=== PATIENT | female | born 1950 | race Caucasian/White ===

== ENCOUNTER 2017-03-22 05:30 | Day surgery (SDC) | payer MEDICARE ==
[2017-03-22] VITALS (13 sets, daily range): BP systolic 115–144; BP diastolic 44–81; PULSE 79–94; RESP 13–21; O2SAT 91–99
[~2017-03-22] VITALS: Ht 152.4 cm; Wt 91.5 kg
[2017-03-22] MEDS: Lactated Ringer's 1,000 ML IV SCH ×2 (05:00→11:13)
[~2017-03-22 05:30] MED LIST: ASPI-973 PO; Dextrose 10% 500 ML IV SCH; GLIM2TAB2 PO; HYDR25TA4 PO; LOSA100T29 PO; MECL-114 PO; METF850T2 PO; SIMV40TA5 PO
[2017-03-22] MEDS ORDERED: fentaNYL-PF 50 mCg/mL 2 mL Inj ONE (05:31)
[2017-03-22] MEDS ORDERED: Succinylcholine Chloride 20 mg/mL 5 mL Inj ONE (05:31)
[2017-03-22] MEDS ORDERED: Ondansetron 2 mg/mL 2 mL Inj ONE (05:31)
[2017-03-22] MEDS ORDERED: Propofol 10,000 mCg/mL 20 mL Inj ONE (05:31)
[2017-03-22] MEDS ORDERED: Glycopyrrolate 0.2 MG/ML 1mL Inj ONE (05:31)
[2017-03-22] MEDS ORDERED: Neostigmine 1 mg/mL 10 mL Inj ONE (05:31)
[2017-03-22] MEDS ORDERED: CeFAZolin Inj 2,000 MG in Dextrose 5%-Pha MIX 50 ML IV SCH (06:00)
[2017-03-22] MEDS: Phenazopyridine 97.5 mg Tablet PO SCH ×2 (06:00→07:05)
[2017-03-22] MEDS ORDERED: Lactated Ringer's 1,000 ML IV ONE ×3 (06:08→09:02)
--- NOTE | 2017-03-22 07:05 | PCM.HPANE ---
Patient Data Surgeon Admitting Provider: Attending Provider:Iván Hollis MD Primary Care Physician:Manpreet Other Provider:Keyshawn Snider Anesthesia Reason for Visit Stress Incontinence Ht/WT & BMI Height (Feet): 5 Height (Inches): 0.00 Weight (Kilograms): 86.4 Body Mass Index 37.00 Allergies Coded Allergies: No Known Allergies (Unverified , 03/21/17) Past Anesthesia History Anesthesia History: Denies:: Anesthesia Reactions, Fam Anesthesia Reaction, Fam Malignant Hypertherm, Malignant Hyperthermia Diabetes History Hx Diabetes?: Yes (TYPE II) Type of Diabetes: Type II Glycemic Control: Oral Medication Current Bedside Blood Glucose: 147 MRSA MRSA: No Medications Blood Thinner: Aspirin Hypertension Medication: Yes Home Meds Incl Beta [place]: No Reported Medications Simvastatin 40 Mg [id number] Mg PO HS 30 Days Ref 0 03/21/17 Hydrochlorothiazide 25 Mg [id number] Mg PO DAILY 30 Days Ref 0 03/21/17 Glimepiride 2 Mg Tablet2 Mg PO DAILYAC #30 TABLET Ref 0 03/21/17 Losartan Potassium 100 Mg [id number] Mg PO DAILY 03/21/17 Metformin 850 Mg [id number] Mg PO TID Ref 0 03/21/17 Aspirin 81 Mg [id number] Mg PO DAILY Ref 0 03/21/17 Discontinued Reported Medications Meclizine (Bonine)25 Mg Tab.chew25 Mg PO TID PRN For Dizziness 03/21/17 History History of ENT Problems?: Yes HEENT History: Positive for:: Sinus Problem (SEASONAL ALLERGIES) Denies:: Abnormal Airway Cataracts Difficult Intubation Dysphagia Glaucoma Hearing Problem TMJ Denture Type: None Teeth Condition: Within Normal Limits Other HEENT Pertinent History: Hx of Heart Problems?: Yes Cardiovascular History: Positive for:: Edema Heart Murmur (AORTIC INSUFFICENY) Hypertension Peripheral Vascular Denies:: AICD Abdominal Aortic Aneurism Atrial Fibrillation Cardiac Surgery Chest Pain Congestive Heart Failure Coronary Artery Disease Irregular Heartbeat Pacemaker Rheumatic Fever Thrombophlebitis Valvular Heart Disease Other Cardiac History: SUBCLAVIAN ARTERY STENOSIS 50% HYPERCHOLSTEROLEMIA Hx of Respiratory Problem?: Yes Respiratory History: Positive for:: Use of C-PAP Machine Denies:: Asthma COPD Chest Surgery Cough Dyspnea Emphysema Hemoptysis Oxygen Administration Pneumonia Pulmonary Embolism Tuberculosis Use of Inhalers / NEBS Hx Neurologic Problems?: Yes Neurological History: Positive for:: Dizziness Denies:: Alzheimer's Disease CVA Dementia Headaches Multiple Sclerosis Parkinson's Disease Peripheral Neuropathy Seizures TIA Hx of GI Problems?: No Gastrointestinal History: Denies:: Cirrhosis Diverticulitis Gall Bladder Disease Gastroesphageal Reflux Gastrointestinal Bleeding Heartburn Hepatitis Hiatal Hernia Liver Disease Rectal Bleeding Hx of Problems?: Yes Genitourinary History: Positive for:: Urinary Tract Infection Denies:: HX of Hemodialysis Kidney Stones Female Hx: Denies:: Currently Endometriosis Pelvic Inflammatory Problems with Breasts? Other History/Comment prolapse Skin History: Denies:: History Skin Disorders? Pressure Ulcers Hx Musculoskeletal Problems?: No Musculoskeletal History: Denies:: Back Injury Degenerative Joint Fibromyalgia Joint Replacement Musculoskeletal Trauma Myasthenia Gravis Osteoarthritis Rheumatoid Arthritis Systemic Lupus Hx of Psycho/Social Problems?: No Psycho Social History: Denies:: Anxiety Bipolar Disorder Hx Depression Suicide Attempt Hx Surgeries?: Yes (3 C-SECTIONS, JASON, 2 FOOT SURGERIES) Hx Any Other Health Problems?: No Other History: Denies:: Cancer Endocrine Disease Hospitalization Thyroid Disease History Blood Transfusions: Positive for:: Accept Blood Products? Denies:: Blood Transfusions Hx Diabetes: Yes (TYPE II)Bedside Blood Glucose: 147 Hx Alcohol Use: NoHx Substance Use: No Smoking Status: Never Smoker Have You Smoked inLast 12 mo: No Stop/Bang Treated for Sleep Apnea?: Yes Do You Have a CPAP Machine?: Yes S-Snoring: Do You Snore Loudly: Yes T-Tired: feel tired, fatigued: Yes O-Obsered: Observed not breath: Yes P-Blood Pressure: treated: Yes B- Body Mass Index > 35 kg/m2: Yes A- Age over 50: Yes N- Neck Large Circumference: Yes G- Gender Male: No MIAH Total Score: 7 MIAH Risk Assessment: High Risk, =/>3 Yes MIAH Category 2: Yes Risk Assessment Category Category 1A: Patient has history of documented sleep apnea, and HAS NOT received any narcotic, sedative or anesthesia administration during this stay. Category 1B: Patient has history of documented sleep apnea, and HAS received any narcotic , sedative or anesthesia administration during this stay Category 2: Patient has SUSPECTED Obstructive Sleep Apnea, and HAS received any narcotic , sedative or anesthesia administration during this stay. Category 3: Patient has SUSPECTED Obstructive Sleep Apnea and HAS NOT received narcotic, sedative or anesthesia administration during this stay. Category 4: Outpatient in Procedural Areas with known sleep apnea or who screen positive for High Risk via the STOP/BANG questionnaire. Exam Exam Vital Signs Vital Signs Date Time Temp Pulse Resp B/P Pulse Ox O2 Delivery O2 Flow Rate FiO2 03/22/17 06:09 36.4 82 20 127/81 96 Room Air General Appearance: Alert, Oriented X3, Cooperative, No Acute Distress HEENT/AIRWAY: MP 3 Lungs: Clear to Auscultation, Normal Air Movement Heart: Exam Unremarkable, Regular Rate/Rhythm, No Murmurs/Rubs/Gallops Meds/Labs/Diagnostics Admission Meds Current Medications Lactated Ringer's (Lr) 1,000 ml @ ud STK-MED ONCE IV Last administered on 03/22t 06:08; Start 03/22/17 at 06:08; Stop 03/22/17 at 06:09; Status DC Bedside Blood Glucose: 147 Plan Impression Patient chart reviewed, patient interviewed and anesthestic plan with risks, benefits, and alternatives discussed, and informed consent obtained. NPO per Anesth. Guidelines: Yes ASA Physical Status: ASA3 Severe Disease Anesthetic Support Modalities: [place] Scope Anesthetic Plan: GA Bene/Risks/Altern/Consents: Yes HP Complete Prior to Induction: Yes Boo Martinez MD March 22, 2017 07:05
[2017-03-22] MEDS ORDERED: Lidocaine 1%-Epi 1:100,000 20 mL Inj INJ ONE (07:45)
[2017-03-22] MEDS ORDERED: Estrogens Conjugated 30 Gm Vaginal Cream VAGINAL ONE (08:40)
[2017-03-22] MEDS ORDERED: Gentamicin 40 mg/mL 2 mL Inj IRRIGATION ONE ×2 (08:59→12:08)
[2017-03-22] MEDS ORDERED: Lactated Ringer's 500 ML IV PRN (09:42)
[2017-03-22] MEDS ORDERED: Lactated Ringer's 1,000 ML IV SCH (09:42)
[2017-03-22] MEDS ORDERED: Ondansetron 2 mg/mL 2 mL Inj IVPUSH PRN (09:45)
[2017-03-22] MEDS ORDERED: EPHEDrine Sulfate 50 mg/mL Inj IVPUSH PRN (09:45)
[2017-03-22] MEDS ORDERED: Phenylephrine 10,000 mCg/mL Inj IVPUSH PRN (09:45)
[2017-03-22] MEDS ORDERED: fentaNYL-PF 50 mCg/mL 2 mL Inj IVPUSH PRN (09:45)
[2017-03-22] MEDS ORDERED: MetoCLOpramide 5 mg/mL 2 mL Inj IVPUSH PRN ×2 (09:45→13:15)
[2017-03-22] MEDS ORDERED: Dexamethasone 4 mg/mL Inj IVPUSH PRN (09:45)
[2017-03-22] MEDS ORDERED: HYDROmorphone 1 mg/mL Inj IVPUSH PRN (09:45)
[2017-03-22] MEDS ORDERED: Acetaminophen IV 1,000 MG in IV Premix 1 EACH IV ONE (10:25)
[2017-03-22] MEDS ORDERED: diphenhydrAMINE 25 mg Capsule PO PRN (13:15)
[2017-03-22] MEDS ORDERED: Alum-Mag Hydrox-Simeth 30 mL Suspension PO PRN (13:15)
[2017-03-22] MEDS ORDERED: HYDROmorphone 0.5 mg/0.5 mL iSecure Syringe ONE (13:23)
--- NOTE | 2017-03-22 14:44 | PCM.ANEP1 ---
Post Anesthesia PACU Phase 1 Assessment Date of Service: March 22, 2017 Vital Signs Vital Signs Date Time Temp Pulse Resp B/P Pulse Ox O2 Delivery O2 Flow Rate FiO2 03/22/17 14:28 Supplement Oxygen 03/22/17 14:26 36.8 88 20 134/73 91 Nasal Cannula 03/22/17 13:55 84 17 135/58 95 Nasal Cannula 3 03/22/17 13:45 83 16 123/81 95 Nasal Cannula 3 03/22/17 13:30 79 13 115/64 95 Nasal Cannula 3 03/22/17 13:20 36.5 85 19 129/44 94 Nasal Cannula 2 03/22/17 13:15 87 19 126/61 93 Nasal Cannula 2 03/22/17 13:10 89 21 134/61 95 Nasal Cannula 2 03/22/17 13:05 91 17 144/69 98 Simple Mask 8 03/22/17 13:00 92 16 140/60 99 Simple Mask 8 03/22/17 12:56 36.5 94 18 140/62 98 Simple Mask 8 Anesthetic Administered: GA Level of Alertness: Drowsy, not talking FLORES's with Equal Strength: Yes Pain: No Nausea or Vomiting: No CV Function & Hydration Stable: Yes Airway Device: Endotrachial Tube Oxygen Delivery: Simple Mask Lungs: Clear to Auscultation, Normal Air Movement Dermatome Level: Full Sensation PACU Phase 2 Assessment Complications: No Follow up Care: No Patient Instructions Provided: Yes Boo Martinez MD March 22, 2017 14:44
--- NOTE | 2017-03-22 14:51 | NUR ---
Arrival to unit Patient arrived to the the unit at 1407 very drowsy, wakes briefly to voice and touch but quickly drifts back to sleep. She is on 2L nasal cannula, archer catheter patent and draining to gravity, vaginal packing. Family at bedside.
[2017-03-22] MEDS: oxyCODONE-Acetamin 5-325 mg Tablet PO PRN ×2 (16:19→20:10)
[2017-03-22] MEDS: 0.9% Sodium Chloride 1,000 ML IV SCH ×2 (16:20→23:04)
[2017-03-22] MEDS: Insulin Human REGular 300 Unit/3 mL Inj SUBQ SCH ×2 (16:24→20:10)
[2017-03-22] MEDS: Acetaminophen IV 1,000 MG in IV Premix 1 EACH IV SCH (18:07)
[2017-03-23 00:11] VITALS: BP 143/72; PULSE 79; RESP 20; O2SAT 94
[2017-03-23] MEDS: Acetaminophen IV 1,000 MG in IV Premix 1 EACH IV SCH (00:30)
--- NOTE | 2017-03-23 01:07 | PCM.SURGOP ---
Surgical Operative Report Date of Service: March 22, 2017 Pre Operative Diagnosis 1. cystocele POPQ stage 2 2. uterine prolapse POPQ stage 2 3. rectocele POPQ stage 2 4. urodynamic stress incontinence, intrinsic sphincter deficiency Post Operative Diagnosis same deficient pubovesical/pubocervical fascia Procedure: 1. vaginal hysterectomy with bilateral adnexectomy 2. anterior repair with Xenform bioligical graft augmentation 3. posterior repair 4. high uterosacral ligament vaginal vault suspension. 5. TVT retropubic sling and cystoscopy Surgeon and Manager Mobility: Surgeon: Iván Hollis MD Assistants: Jessica Roe MD Indication for Procedure Her assessment to date includes: 1. Stress incontinence in female N39.3 (625.6): Urodynamic testing revealed intrinsic sphincter deficiency 2. Uterovaginal prolapse, incomplete N81.2 (618.2): 3. Cystocele, midline N81.11 (618.01): 4. Rectocele N81.6 (618.04): The patient is a candidate for surgical prolapse management in the form of vaginal hysterectomy with possible BSO, anterior repair and posterior repair with possible biologic graft augmentation, high uterosacral ligament vaginal vault suspension. enterocele repair and TVT retropubic sling. She has obtained medical /cardiac clearance for surgery. The patient signed the consent form. She agreed with the risks, benefits, and alternatives to surgery. The risks included but not limited to recurrence or persistence of prolapse, recurrence of persistence of incontinence, development of voiding dysfunction, development of urinary urgency, urgency incontinence, frequency, and need for intermittent self-catheterization or prolonged indwelling catheterization, injury to other organs including bladder, bowel, nerves or blood vessels. Need for blood transfusion, need for temporary colostomy or urinary stenting. Development of vaginal scarring, dyspareunia, defecatory dysfunction, recurring pain, hematoma formation, urinary tract infection, cellulitis, necrotizing fascitis, and medical risks including myocardial infarction, stroke or VTE. She also understood the FDA warnings associated with the use of vaginal mesh (dysparunia, vaginal erosion, erosion into bowel/bladder/urethra, requiring further surgery to correct these complications). The patient understood the risks and benefits and consented to surgery. Findings: see dictation Procedure Details SURGICAL TECHNIQUE: The patient was brought to the operating room. She was placed under general anesthesia. She was positioned with legs in [place] stirrups. She was prepped and draped in the normal fashion for vaginal surgery. She was given a dose of IV ancef intraoperatively. She received 200 mg pyridium orally 30 min prior to surgery. 1. Vaginal Hysterectomy and bilateral salpingectomy: Lidocaine 0.5% with 1:200,000 of epinephrine was infiltrated pericervically. A pericervical incision was made with cautery. Anteriorly, the bladder was sharply dissected off the cervix. Posteriorly, the cul de sac was entered with sharp dissection. The bowels were packed with a mini-laparotomy sponge. The uterosacral ligaments were bilaterally clamped, divided and then tied in a transfixion fashion with 0- vicryl suture. Anteriorly, the Uterovesical peritoneum was entered with sharp dissection and the bladder was retracted upward with a right-angle retractor. Entry was aided via direct palpation of the scarred uterovesical peritoneum though the posterior colpotomy incision and around the uterine fundus. The uterine vessels were then coagulated, and ligated using the Ligasure Impact System. The uterine body was delivered posteriorly. The utero-ovarian ligaments were clamped bilaterally, coagulated, ligated and then tied using 0-Vicryl suture. The tubes and ovaries appeared atrophic, especially along the left side. The right tube and ovary was clamped at its vascular base, coagulated with Ligasure and excised. The pedicle was tied with 0-vicryl suture. The left tube and ovary appeared even more so atrophic; we excised what we thought were the atrophic left adnexa or its remnants. The uterus/cervix, and tubes were sent to pathology. It was noted that the pedicles were hemostatic. 0 vicryl suture was used to achieve hemostasis along the cuff. 2. High uterosacral ligament vaginal vault suspension and cystoscopy: Mini laparotomy sponges were packed to retract the bowel upwards. A pair of Allis clamps were placed along the intraperitoneal portions of the vagina at the 5 and 7 o'clock positions. Tension along these Allis clamps allowed for identification of the uterosacral ligaments bilaterally. A pair of 0 Vicryl sutures were passed around the uterosacral ligaments of the level of the ischial spine bilaterally, totalling 4. Cystoscopy was performed. Tension was applied along the vault sutures and brisk spillage of pyridium-stained urine was noted briskly effluxing from both ureteric orifices. There was no significant enterocele; therefore an enterocele repair was not necessary. 3. Anterior colporrhaphy with Xenform graft augmentation: Lidocaine 1% with 1/ 065524 epinephrine was infiltrated along the anterior vaginal wall mucosa. A midline vertical incision was made through the anterior vaginal wall. The vaginal wall was dissected off the underlying pubocervical and pubovesical fascia. The dissection was extended laterally beyond the ischial pubic rami. It was noted that the pubocervical and pubovesical fascial tissues were deficient and thin. The cystocele was plicated in 2 layers, the first layer with 2-0 Vicryl suture in interrupted fashion, the second layer with 2-0 Tycron suture in an interrupted fashion. A trapezoidal piece of Xenform graft was then incorporated atop the plicated area far laterally. The graft was secured to the obturator internus membrane. At the level of the bladder neck, an upside down triangular piece of graft was excised so that there was no over-support created along the level of the bladder neck. Apically , the graft was passed through the proximal uterosacral ligament sutures. No anterior vaginal mucosa was required to be excised. The vault suspension sutures were then passed through the planned apex of the vagina. Two were placed through the anterior apex and the other two, through the posterior apex. The vagina was then reapproximated using 3-0 Vicryl suture in a running-locked fashion. The high uterosacral ligament vaginal vault suspension sutures were tied and this elevated the apex of the vagina high up into the hollow of the sacrum. 4. Posterior colporrhaphy: As the patient had 3 C-sections, the introitus was tight. Therefore, a perineorrhapy was deemed unnecessary. Lidocaine 1% with 1:200,000 of epinephrine was infiltrated along the posterior vaginal wall mucosa. A midline vertical incision was made through the posterior vaginal wall. The vaginal mucosa was dissected off the underlying rectovaginal tissues. It was noted the fascial tissues were sufficient. The rectocele was plicated in one layer using 2- 0 Vicryl suture in an interrupted fashion. No excess posterior vaginal mucosa was excised. The vagina was reapproximated using 2-0 Vicryl suture in running-locked fashion. 5. Tension-free vaginal tape retropubic sling and cystoscopy: Lidocaine 1% with epinephrine 1/304599 was infiltrated along the anterior vaginal wall mucosa at the level of the mid urethra. A midline vertical incision was made at the level of the scalpel. Metzenbaums were used to create 2 periurethral tunnels. Two stab incisions were created along the suprapubic regions. Catheter guidewire was inserted into the Archer catheter. Using the TVT needle attached to its handle, the needle was inserted into the right periurethral tunnel. The point was initially directed towards the ipsilateral shoulder. Once it pierced the urogenital diaphragm it was then directed medially. During passage of the needle we insured that the needle was hugging snugly against the pubic bone until the needle was brought through through the ipsilateral skin incision. Archer catheter was removed. Cystoscopy assured that there was no inadvertent penetration of the needle through the dome of the bladder or periurethrally. Procedure was performed on the contralateral side. Again, cystoscopic evaluation revealed that there was no penetration of the sling into the urethra or bladder on the contralateral side. Both ureteric orifices were noted to be functional by the brisk spillage of pyridium-stained urine. The bladder was filled with 300 cc of sterile water. Plastic sheaths and the sling were removed. The Crede maneuver was used to carefully adjust sling tension. Also a large right angle clamp was allowed to easily pass behind the sling so that the sling was placed in a tension-free manner. Sling ends were cut level to the skin. The skin is reapproximated using Mastisol solution, Steri-Strips and Band-Aids. The vagina was reapproximated using 3-0 Vicryl suture in a running fashion. The vagina was packed with Premarin-lubricated packing. An indwelling 16 F archer catheter was connected to straight drainage. The patient's hips were periodically deflexed during the case. There were no complications. The EBL was 250 ml. All sponges and instruments were accounted for. She was taken to the recovery room in stable condition. Complications There were no periprocedural complications identified. Surgical Specimen Removed: Yes Specimen sent to Pathology: Yes Surgical Specimen description: bilateral adnexa Anesthetic Plan: GA Grafts, Implants: Grafts-See Implant Record, Implants-See Implant Record Output, Estimated Blood Loss: 250 (ml) Blood Administration during cao: No Drains: None Catheters: Urethral 2 Way Archer Post Operative Plan overnight stay in bed as outpatient as she requires a voiding trial in the am copies to: Jessica Roe MD; Iván Hollis MD; carlos alberto melchor MD, William Andre Z MD Mar 23, 2017 01:07
[2017-03-23] MEDS: oxyCODONE-Acetamin 5-325 mg Tablet PO PRN ×2 (01:09→05:02)
--- NOTE | 2017-03-23 02:10 | NUR ---
Mentation/Pain/Respiratory Patient noted to be resting with eyes closed every time staff member walks into room. Easily awakes to voice and answering questions appropriately. When awake, pt rating abd/pelvic pain 6-7/10. Receiving Percocet one tab PO for pain management with effective results. Upon each reassessment, noted to be resting with eyes closed. RT in room @ to help set up patients home CPAP machine. CPOx in place- mid s.
[2017-03-23] MEDS: Insulin Human REGular 300 Unit/3 mL Inj SUBQ SCH ×4 (02:22→20:30)
[2017-03-23 05:08] VITALS: BP 153/72; PULSE 75; RESP 20; O2SAT 96
[2017-03-23 05:43] LABS: BASOPHILS % (AUTO) 0.1 % (0-3); EOSINOPHILS % (AUTO) 0.2 % (0-5); MONOCYTES % (AUTO) 10.8 % (4-12); Mean Corpuscular Hemoglobin 26.4 pg (27.0-35.0); Mean Corpuscular Volume 85.1 fL (81-100); NEUTROPHILS % (AUTO) 67.1 % (40-74); Platelet Count 355 bil/L (150-400)
[2017-03-23] MEDS: 0.9% Sodium Chloride 1,000 ML IV SCH ×3 (06:09→21:12)
[2017-03-23] MEDS ORDERED: Heparin 5,000 Unit/mL Inj SUBQ SCH (08:30)
--- NOTE | 2017-03-23 11:00 | PCM.DIGYN ---
Surgical Discharge Instruction Dates of Hospitalization Date of Hospital Admission 03/22/17 overnight stay as outpatient Providers Admitting Physician: Primary Care Physician: Nopcp Attending Physician: Iván Hollis MD Diagnosis at Time of Discharge Diagnosis at time of discharge uterovaginal prolapse, stress incontinence Post-operative diagnosis same deficient pubovesical/pubocervical fascia Problems: Diet Discharge Diet: No restrictions Activity Discharge Activity-General: Restrict lifting to no greater than (10 lb for 6 wk ) Dressing and Incisional Care Dressing Care: Allow Steri Stripes to fall off Hygiene: May shower Follow Up Plan Follow-up appointment: Weeks (1 for a nurse visit for a voiding trial IF she goes home with a archer cath; see DR. Hollis in 2 wk also) Call your provider for: Fever, Chills, Shortness of breath, Vomitting, Heavy vaginal bleeding, Increasing pain Iván Hollis MD Mar 23, 2017 11:00
--- NOTE | 2017-03-23 11:07 | NUR ---
Void Trial Removed Archer @ 1100. Only able to place 150ml into bladder before pt stated that she felt that it was full. Removed archer and pt on commade unable to void at this time. Will continue to monitor. Addendum: 03/23/17 at 1949 by SAMI WHITE RN Pt unable to void. Archer 16G was replaced after a few attempts. Archer capped and educated pt regarding emptying bladder/cath every 4 hrs at least or when bladder feels full. Care continues
[2017-03-23] MEDS: Ondansetron 2 mg/mL 2 mL Inj IVPUSH PRN ×2 (11:08→16:22)
[2017-03-23] MEDS: Senna-Docusate 8.6-50 mg Tablet PO SCH ×2 (13:11→21:03)
[2017-03-23 13:47] VITALS: BP 145/71; PULSE 83; RESP 20; O2SAT 94
--- NOTE | 2017-03-23 19:49 | NUR ---
Pain / N/V Pain remains uncontrolled. Pt frequently moaning and c/o pain 06/01. Anytime she attempts to move ot get up or out of bed she becomes nauseous and will vomit. Denies light headed or dizziness but states "I'm so sick." Nausea seems to follow narcotic use. Ibuprofen and Tylenol will be used as well as Zofran for nausea. Oscar did not seen to help. Care continues Addendum: 03/23/17 at 1951 by SAMI WHITE RN MD Hollis paged throughout the day and aware of situation. Per MD Hollis OK for pt to stay another night. Care continues
[2017-03-23 20:55] VITALS: BP 114/69; PULSE 81; RESP 18; O2SAT 93
[2017-03-23] MEDS: Heparin 5,000 Unit/mL Inj SUBQ SCH (21:05)
--- NOTE | 2017-03-23 22:28 | PCM.PNSURG ---
Subjective Date of Service: Mar 23, 2017 Date of Service: Mar 23, 2017 Visit Information: Reason for Visit Stress Incontinence Surgery/Surgery Date VAG HYST 03/22/17 Post-Op Day # 1 Subjective: Patient first seen by Dr. Hollis at 11am and followed via phone calls to the evening of 03/23/17 AVSS Pain control has been an issue through. Morphine and Percocet have been nauseating for her. Limited pain control with addition of tramadol. Currently , pain is being treated with Ibuprofen and Tylenol which is not nausea-causing. She is slow to ambulate as a result, and she is eating minimally Hct stable OR explained to patient Voiding trial: patient failed Objective Vital Sign- Last 8 Hours Date Time Temp Pulse Resp B/P Pulse Ox O2 Delivery O2 Flow Rate FiO2 03/23/17 20:55 36.8 81 18 114/69 93 Room Air Intake and Output- Last 8 Hour 03/23/17 Cumulative From/Thru 07:00 03/21/17 13:59 - 03/23/17 06:03 Intake Total 2062 ml 4812 ml Output Total 775 ml 1175 ml Balance 1287 ml 3637 ml Intake Oral 200 ml 200 ml IV Total 1862 ml 4612 ml Output Urine Total 525 ml 675 ml Estimated Blood Loss 250 ml 500 ml # Bowel Movements 0 0 General: Alert, Oriented X3 Lungs: Clear to Auscultation Abdomen: Soft Catheters: Urethral 2 Way Archer Result Diagram: 03/23/17 0450 Assessment & Plan Impression 1. Pain-control is sub-optimal due to her intolerance to narcotics 2. Nausea control has been difficult due to need to try narcotics for pain relief 3. Failed voiding trial Problems: Plan 1. Will keep patient in hospital for an extra day to optimize pain-control and nausea-control 2. she has failed the voiding trial and she will need archer teaching 3. Increase Ibuprofen to 600 mg QID; use extra strength tylenol concurrently 4. encourage ambulation and nutrition VTE Prophylaxis: Sub-Q Heparin (Unfractionated) Resuscitation Status: CPR: Attempt Resuscitation copies to: Iván Hollis MD, William Andre Z MD Mar 23, 2017 22:28
[2017-03-24] MEDS: Insulin Human REGular 300 Unit/3 mL Inj SUBQ SCH ×2 (02:30→08:13)
--- NOTE | 2017-03-24 03:54 | NUR ---
Pain Pt. has rated pain 2/10 during shift until now. Pt. reports Tylenol and Ibuprofen PO effective for pain. Will continue to monitor.
[2017-03-24] MEDS: 0.9% Sodium Chloride 1,000 ML IV SCH ×2 (05:12→13:12)
[2017-03-24 05:51] VITALS: BP 147/78; PULSE 79; RESP 20; O2SAT 94
[2017-03-24] MEDS: Heparin 5,000 Unit/mL Inj SUBQ SCH ×2 (06:05→12:30)
[2017-03-24] MEDS: Senna-Docusate 8.6-50 mg Tablet PO SCH (08:11)
--- NOTE | 2017-03-24 10:02 | PCM.PNSURG ---
Subjective Date of Service: Mar 24, 2017 Date of Service: Mar 24, 2017 Visit Information: Reason for Visit Stress Incontinence Surgery/Surgery Date VAG HYST 03/22/17 Post-Op Day # 2 Subjective: AVSS Nausea now resolved - pt reports feeling much better today Only taking tylenol and Ibuprofen; narcotics held to prevent nausea ambulatory starting to eat more Cr 0.6 failed void trial yesterday Gastrointestinal: Tolerating Oral Feedings Pain Management: PO Postop Activity: Ambulate with Assist Objective Vital Sign- Last 8 Hours Date Time Temp Pulse Resp B/P Pulse Ox O2 Delivery O2 Flow Rate FiO2 03/24/17 08:14 CPAP/BIPAP 03/24/17 05:51 36.8 79 20 147/78 94 Room Air Intake and Output- Last 8 Hour 03/24/17 Cumulative From/Thru 07:00 03/21/17 13:59 - 03/24/17 06:50 Intake Total 600 ml 5762 ml Output Total 650 ml 2925 ml Balance -50 ml 2837 ml Intake Oral 600 ml 1150 ml IV Total 4612 ml Output Urine Total 650 ml 2425 ml Estimated Blood Loss 500 ml # Bowel Movements 0 General: Alert, Oriented X3, Cooperative Lungs: Clear to Auscultation Abdomen: Soft Catheters: Urethral [address] Mejia Result Diagram: 03/23/17 0450 03/23/17 0450 Assessment & Plan Impression Stable POD#2 ready for discharge today Problems: Plan D/C home later today when ready and stable f/u in [address] Hollis's MA, and [address] Hollis VTE Prophylaxis: Sub-Q Heparin (Unfractionated) Resuscitation Status: CPR: Attempt Resuscitation copies to: Iván Hollis MD, William Andre Z MD Mar 24, 2017 10:02
--- NOTE | 2017-03-24 13:57 | NUR ---
DC Pt educted regarding Mejia bag and catheter, draining catheter and using cap during day. Pt states that she understands all discharge instructions as well as Mejia catheter care. Family at bedside for education as well. Pt continues to c/o pain 5-6/10 and nausea upon standing. Pt taken out by staff via WC. All belongings in hand. Prescription in hand. Care continues
--- NOTE | 2017-03-24 15:25 | PATH ---
SURGICAL PATHOLOGY Attending Physician:Iván Hollis, CASE STATUS: Signed Out PATIENT NAME: SARAI ALVARADO PID: [id number] : 1950 DATE COLLECTED:03/22/2017 22:59 SPECIMEN: 1: Ovary +/- tube, non-tumor 2: Ovary +/- tube, non-tumor 3: Uterus +/- tubes/ovaries, for prolapse CLINICAL HISTORY: UTEROVAGINAL PROLAPSE 1). RIGHT ADNEXA HEAD NECK 2). LEFT ADNEXA 3). UTERUS FINAL DIAGNOSIS: 1.RIGHT ADNEXA: SALPINGIOSIS CYSTS, OVARY. FALLOPIAN TUBE UNREMARKABLE. 2.LEFT ADNEXA: FALLOPIAN TUBE ONLY WITH NO PATHOLOGIC CHANGE. NO OVARIAN TISSUE IDENTIFIED. 3.UTERUS (CLINICAL PROLAPSE): MINIMALLY PROLIFERATIVE ENDOMETRIUM WITH DISORDERED ARCHITECTURE, NEGATIVE FOR ATYPIA. FOCAL AREAS OF ADENOMYOSIS. ICD10 N81.4 GROSS DESCRIPTION: The specimens are received in formalin, labeled with the patient's name, and sublabeled as the following: (1) right adnexa head neck; (2) left adnexa; (3) uterus. (1)The specimen consists of an ovary (2.2 x 1.5 x 1.1 cm) and a separate piece of tissue (2.5 x 2.0 x 0.5 cm). The ovary has aden-yellow smooth shiny flat serosa. The parenchyma is aden-yellow solid and firm with corpus albicans identified. The separate piece of tissue is camara-white and contains ovarian parenchyma. An apparent fallopian tube is identified and contains pale yellow paste-like material. Section code: (1A) ovary, serially sectioned, cash posting representative; (1B, 1C) separate tissue, serially sectioned, cash posting representative. (2) The specimen consists of a piece of aden-white rubbery glistening tissue (2.3 x 1.4 x 0.5 cm). Section code: (2A-2B) tissue, serially sectioned. Specimen entirely submitted. (3) The consists of a uterus (37.1 g, 2.4 cm AP, 7.6 cm SI, 2.5 cm ML). The ovaries and fallopian tubes are absent. The cervix (1.5 cm AP, 2.6 cm ML) has a transverse os and patent endocervical canal. The endometrium (average thickness-0.2 cm) is aden-white smooth and flat. The myometrium (thickness-1.0 cm) is aden-white and unremarkable. Section code: (3A) anterior cervix; (3B) posterior cervix; (3C, 3D) anterior endomyometrium; (3E, 3F) posterior endomyometrium. 03/23/17 JM MICRO DESCRIPTION: See diagnosis. ICD-9 CODES: CPT CODES: 1: 73903 2: 63402 3: 67499 Electronically Signed Out El García MD [facility] [address], [place] [address] Technical component performed at [facility], [facility] [address], [place], [address]
--- NOTE | 2017-04-05 16:45 | PCM.DC.SUR ---
Discharge Summary Date of Service: 03/22/17 to 03/24/17 Date of Hospital Admission: 03/22/17 Date of Operation(s): 03/22/17 Date of Discharge: Mar 24, 2017 at 13:50 Diagnosis at Time of Discharge 1. cystocele POPQ stage 2 2. uterine prolapse POPQ stage 2 3. rectocele POPQ stage 2 4. urodynamic stress incontinence, intrinsic sphincter deficiency Problems: Operation 1. vaginal hysterectomy with bilateral adnexectomy 2. anterior repair with Xenform bioligical graft augmentation 3. posterior repair 4. high uterosacral ligament vaginal vault suspension. 5. TVT retropubic sling and cystoscopy Brief History and Physical: The patient's history and physical examination is significant for: 1. cystocele POPQ stage 2 2. uterine prolapse POPQ stage 2 3. rectocele POPQ stage 2 4. urodynamic stress incontinence, intrinsic sphincter deficiency Hospital Course: Date of Service: March 22, 2017 Pre Operative Diagnosis 1. cystocele POPQ stage 2 2. uterine prolapse POPQ stage 2 3. rectocele POPQ stage 2 4. urodynamic stress incontinence, intrinsic sphincter deficiency Post Operative Diagnosis same deficient pubovesical/pubocervical fascia Procedure: 1. vaginal hysterectomy with bilateral adnexectomy 2. anterior repair with Xenform bioligical graft augmentation 3. posterior repair 4. high uterosacral ligament vaginal vault suspension. 5. TVT retropubic sling and cystoscopy Subjective Date of Service: Mar 23, 2017 Date of Service: Mar 23, 2017 Visit Information: Reason for Visit Stress Incontinence Surgery/Surgery Date VAG HYST 03/22/17 Post-Op Day # 1 Subjective: Patient first seen by Dr. Hollis at 11am and followed via phone calls to the evening of 03/23/17 [facility] Pain control has been an issue through. Morphine and Percocet have been nauseating for her. Limited pain control with addition of tramadol. Currently , pain is being treated with Ibuprofen and Tylenol which is not nausea-causing. She is slow to ambulate as a result, and she is eating minimally Hct stable OR explained to patient Voiding trial: patient failed Objective Vital Sign- Last 8 Hours Date Time Temp Pulse Resp B/P Pulse Ox O2 Delivery O2 Flow Rate FiO2 03/23/17 20:55 36.8 81 18 114/69 93 Room Air Intake and Output- Last 8 Hour 03/23/17 Cumulative From/Thru 07:00 03/21/17 13:59 - 03/23/17 06:03 Intake Total 2062 ml 4812 ml Output Total 775 ml 1175 ml Balance 1287 ml 3637 ml Intake Oral 200 ml 200 ml IV Total 1862 ml 4612 ml Output Urine Total 525 ml 675 ml Estimated Blood Loss 250 ml 500 ml # Bowel Movements 0 0 General: Alert, Oriented X3 Lungs: Clear to Auscultation Abdomen: Soft Catheters: Urethral [address] Archer Result Diagram: 03/23/17 6500 [Image 1] Assessment & Plan Impression 1. Pain-control is sub-optimal due to her intolerance to narcotics 2. Nausea control has been difficult due to need to try narcotics for pain relief 3. Failed voiding trial Problems: Plan 1. Will keep patient in hospital for an extra day to optimize pain-control and nausea-control 2. she has failed the voiding trial and she will need archer teaching 3. Increase Ibuprofen to 600 mg QID; use extra strength tylenol concurrently 4. encourage ambulation and nutrition VTE Prophylaxis: Sub-Q Heparin (Unfractionated) Resuscitation Status: CPR: Attempt Resuscitation copies to: Iván Hollis MD Subjective Date of Service: Mar 24, 2017 Date of Service: Mar 24, 2017 Visit Information: Reason for Visit Stress Incontinence Surgery/Surgery Date VAG HYST 03/22/17 Post-Op Day # 2 Subjective: AVSS Nausea now resolved - pt reports feeling much better today Only taking tylenol and Ibuprofen; narcotics held to prevent nausea ambulatory starting to eat more Cr 0.6 failed void trial yesterday Gastrointestinal: Tolerating Oral Feedings Pain Management: PO Postop Activity: Ambulate with Assist Objective Vital Sign- Last 8 Hours Date Time Temp Pulse Resp B/P Pulse Ox O2 Delivery O2 Flow Rate FiO2 03/24/17 08:14 CPAP/BIPAP 03/24/17 05:51 36.8 79 20 147/78 94 Room Air Intake and Output- Last 8 Hour 03/24/17 Cumulative From/Thru 07:00 03/21/17 13:59 - 03/24/17 06:50 Intake Total 600 ml 5762 ml Output Total 650 ml 2925 ml Balance -50 ml 2837 ml Intake Oral 600 ml 1150 ml IV Total 4612 ml Output Urine Total 650 ml 2425 ml Estimated Blood Loss 500 ml # Bowel Movements 0 General: Alert, Oriented X3, Cooperative Lungs: Clear to Auscultation Abdomen: Soft Catheters: Urethral 2 Way Archer Assessment & Plan Impression Stable POD#2 ready for discharge today Problems: Plan D/C home later today when ready and stable f/u in [address] Hollis's MA, and [address] Hollis VTE Prophylaxis: Sub-Q Heparin (Unfractionated) Resuscitation Status: CPR: Attempt Resuscitation copies to: Iván Hollis MD Disposition: stable for discharge Follow-up Plan: f/u in [address] Hollis and NELIDA Aspirin (Aspirin) 81 Mg Tablet 81 MG PO DAILY (Reported) Glimepiride (Glimepiride) 2 Mg Tablet 2 MG PO DAILYAC (Reported) Hydrochlorothiazide (Hydrochlorothiazide) 25 Mg Tablet 25 MG PO DAILY (Reported ) Losartan Potassium (Losartan Potassium) 100 Mg Tablet 100 MG PO DAILY (Reported ) Metformin (Metformin) 850 Mg Tablet 850 MG PO TID (Reported) Simvastatin (Simvastatin) 40 Mg Tablet 40 MG PO HS (Reported) copies to: Iván Hollis MD, William Andre Z MD Apr 05, 2017 16:45
== END 2017-03-24 13:50 | disposition home or self-care (01) ==
LOC: SAS 05:30 → OSC 14:20 → SAS 03-24 13:50
PROVIDERS: ATTEND Obstetrics & Gynecology
DX: N81.4 Uterovaginal prolapse, unspecified (principal); N39.3 Stress incontinence (female) (male); N81.6 Rectocele; I10 Essential (primary) hypertension; I73.9 Peripheral vascular disease, unspecified; R01.1 Cardiac murmur, unspecified; E78.00 Pure hypercholesterolemia, unspecified; E11.9 Type 2 diabetes mellitus without complications; Z79.84 Long term (current) use of oral hypoglycemic drugs; Z79.82 Long term (current) use of aspirin
CPT/HCPCS: 36415; 57260; 57267; 58262; 82565; 85025; C1763; C1771; J0131; J0690; J1170; J1580; J1644; J1815; J2270; J2405; J2765; J3010; J7030; J7120